=== PATIENT | female | born 1980 | race Caucasian/White ===

== ENCOUNTER 2017-06-02 13:03 | Inpatient (IN) | payer BC ==
[2017-06-02 13:26] VITALS: BMI 35.2
--- NOTE | 2017-06-02 15:28 | US ---
PROCEDURE: OB Pelvic Ultrasound HISTORY: R/O demise COMPARISON: None available. FINDINGS: An intrauterine gestation identified in vertex lie with an anterior placenta without evidence of previa or abruption. There is no detectable cardiac activity however. No breathing was identified or body movement and no tone was encountered during biophysical profile examination dependent fluid scoring 2 given an IVON 18.6. Total biophysical score is 2/8. Findings are compatible with demise. Further clinical correlation is recommended. Patient last notes appears 09/13/2016 suggesting an estimated gestational age of 37 weeks 3 days. Based on current biometry, the ultrasonic age is 37 weeks and 3 days as well. biometry: BPD 9.2 cm corresponds to 37 weeks 3 days. HC 32.9 cm corresponds to 37 weeks 2 days. AC 33.7 cm corresponds to 37 weeks 4 days. FL 7.3 cm corresponds to 37 weeks 3 days. Estimated weight 3231 g/ 7 lb 2 oz. AC suggests AC ratio 0.97 which falls within normal range. anatomical survey is quite limited at this late stage of gestation. Normal cervical length of 3.3 cm with a closed internal os. No definitive myometrial mass however the posterior fundus is poorly characterized due to obscuring by the fetus at this stage of gestation. OTHER FINDINGS: None. IMPRESSION: A single intrauterine gestation is identified at 37 weeks 3 days estimated gestational age sonographically equivalent to LMP derived dates, however, there is no detectable cardiac activity and biophysical profile score is 2/8. demise is suggested. Clinically correlate further.
[2017-06-02] MEDS ORDERED: ceFAZolin IV 2 gm in Dextrose 1 GM/50 ML BAG IVPB SCH (16:30)
[2017-06-02] MEDS ORDERED: Nalbuphine 20 mg/ml Inj (1 ml) IVP PRN (16:45)
--- NOTE | 2017-06-02 16:54 | OBHP ---
Datetime: 06/02/2017 13:31 IP Adm Impression: Term, intrauterine ; Demise IP Chief Complaint Other: AMA, Type2 DM, IP Admit Plan: Observation/Evaluation Admit Comment, IP Provider: This is a private patient of Dr. Babar Hartley 36 y.o. P0010, LMP 09/13/16, TUYET 06/21/17, EGA 37w 2d referred by pvt OB for evaluation of possible IUFD. HPI: patient recalls slightly decreased FM since 05/28/17 ..."even when I had the biophysical, he wasn't moving as much ...I thought it was normal". Reports no movement 2 days ago. Noticed neeta t "my abdomen raised a bit yesterday". Was seen in PMD's office today: sent for an ultrasound at an imaging center - no cardiac activity was noted: BPS 0/8. Denies LOF, VB; (+) increasing (B-H) contrac tions x 2 days : Dr. 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 Lives with significant other/ FOB, together x 1 2 years. 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 Father 1996 - S/P [place], h/o CAD. h/o t obacco use. Mat aunt - breast CA survivor 25 years ago, alive and well. P.E.: as above. Obese, crying. Awake, alert, oriented to time, person and place Assessment: 36 y.o. P0010, 37w 2d, Type 2 DM, possible IUFD; AMA, obesity, GBS (+). Plan: 1) OB ultrasound 2) Subsequent care to be determined - Dr Hartley is aware Addendum: 1635 hours - Ob ultrasound: BPS 2/8 - "no detectable cardiac activity"; EGA 37w 3d, EFW 7lb 2oz; anteri or placenta IVON 18.6 cm - Dr. Hartley is aware and present. Patient to be admitted for uterine evacuation. Assessment: 36 y.o. P0010, 37w 3d, IUFD - H/O Type 2 (pre-gestational) DM; AMA, obesity. Clinicall y stable. Plan: 1) Admit 2) NPO 3) Cervidil 4) [place] 5) Ancef 6) Admission labs, incl serological testing 7) Pain management upon request, including but not limited to epidural 8) Anticipate bereavement counseling 9) Supportive care Pelvic Type - PN: Not Done Extremities - PN: Normal Abdomen - PN: Normal Back - PN: Normal Breast - PN: Not Done Lungs - PN: Normal Heart - PN: Normal Thyroid - PN: Not Done Neurologic - PN: Normal HEENT - PN: Normal General - PN: Normal Presentation-Admit: Vertex FHR - Baseline A Provider: not applicable Comments, ACOG Physical Exam: Abdomen: Obese. Soft. Gravid. Non tender All other systems reviewed - as oer HPI Gestation - Est Wks by US: 37 w 3d EGA AdmitDate IP: 37.2 IP Indication for Induction: Demise IP Chief Complaint: Decreased movement Genitourinary Exam: Not Done DTRs - PN: Not Done
--- NOTE | 2017-06-02 16:59 | OBADHP ---
Datetime: 06/02/2017 13:31 IP Chief Complaint Other: AMA, Type2 DM, Admit Comment, IP Provider: This is a private patient of Dr. Babar Hartley 36 y.o. P0010, LMP 09/13/16, TUYET 06/21/17, EGA 37w 2d referred by pvt OB for evaluation of possible IUFD. HPI: patient recalls slightly decreased FM since 05/28/17 ..."even when I had the biophysical, he wasn't moving as much ...I thought it was normal". Reports no movement 2 days ago. Noticed neeta t "my abdomen raised a bit yesterday". Was seen in PMD's office today: sent for an ultrasound at an imaging center - no cardiac activity was noted: BPS 0/8. Denies LOF, VB; (+) increasing (B-H) contrac tions x 2 days : Dr. 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 Lives with significant other/ FOB, together x 1 2 years. 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 Father 1996 - S/P [place], h/o CAD. h/o t obacco use. Mat aunt - breast CA survivor 25 years ago, alive and well. P.E.: as above. Obese, crying. Awake, alert, oriented to time, person and place Assessment: 36 y.o. P0010, 37w 2d, Type 2 DM, possible IUFD; AMA, obesity, GBS (+). Plan: 1) OB ultrasound 2) Subsequent care to be determined - Dr Hartley is aware Addendum: 1635 hours - Ob ultrasound: BPS 2/8 - "no detectable cardiac activity"; EGA 37w 3d, EFW 7lb 2oz; anteri or placenta IVON 18.6 cm - Dr. Hartley is aware and present. Patient to be admitted for uterine evacuation. Assessment: 36 y.o. P0010, 37w 3d, IUFD - H/O Type 2 (pre-gestational) DM; AMA, obesity. Clinicall y stable. Plan: 1) Admit 2) NPO 3) Cervidil 4) [place] 5) Ancef 6) Admission labs, incl serological testing 7) Pain management upon request, including but not limited to epidural 8) Anticipate bereavement counseling 9) Supportive care - as per, and discussed with, Dr. Hartley Pelvic Type - PN: Not Done Extremities - PN: Normal Abdomen - PN: Normal Back - PN: Normal Breast - PN: Not Done Lungs - PN: Normal Heart - PN: Normal Thyroid - PN: Not Done Neurologic - PN: Normal HEENT - PN: Normal General - PN: Normal Presentation-Admit: Vertex FHR - Baseline A Provider: not applicable Comments, ACOG Physical Exam: Abdomen: Obese. Soft. Gravid. Non tender All other systems reviewed - as oer HPI Gestation - Est Wks by US: 37 w 3d Vital Signs Provider: Reviewed; Within Normal Limits IP Chief Complaint: Decreased movement Genitourinary Exam: Not Done DTRs - PN: Not Done EGA AdmitDate IP: 37.2 IP Adm Impression: Term, intrauterine ; Demise IP Admit Plan: Admit to unit; Initiate demise protocol
[2017-06-02 17:05] LABS: BASO % 0.3 % (0.0-2.0); EOS % 0.1 % (0.0-4.0); HEMATOCRIT 37.1 % (34.0-47.0); LYMPH # 1.7 K/uL (1.0-4.3); LYMPH % 16.4 % (20.0-40.0); MEAN CELL VOLUME 86.5 fL (81.0-99.0); MEAN CORPUSCULAR HEMOGLOBIN 28.9 pg (27.0-31.0); MEAN CORPUSCULAR HGB CONC 33.4 g/dL (33.0-37.0); MEAN PLATELET VOLUME 8.9 fL (7.2-11.7); MONO # 0.9 K/uL (0.0-0.8); MONO % 8.5 % (0.0-10.0); RED CELL DISTRIBUTION WIDTH 14.3 % (11.5-14.5); WHITE BLOOD COUNT 10.3 K/uL (4.8-10.8)
[2017-06-02 17:13] LABS: RBC URINE 18 /hpf (0-3); URINE BACTERIA MANY (<OCC); URINE BILIRUBIN NEGATIVE (NEGATIVE); URINE BLOOD NEGATIVE (NEGATIVE); URINE COLOR Yellow (YELLOW); URINE GLUCOSE (UA) 3+ mg/dL (Normal); URINE KETONE NEGATIVE (NEGATIVE); URINE LEUKOCYTE ESTERASE NEG Leu/uL (Negative); URINE PROTEIN NEGATIVE (NEGATIVE); URINE UROBILINOGEN NORMAL mg/dL (0.2-1.0); WBC URINE 21 /hpf (0-5)
[2017-06-02] MEDS ORDERED: ceFAZolin IV 2 gm in Dextrose 2 GM/50 ML BAG IVPB ONE ×2 (17:15→17:17)
[2017-06-02 17:18] LABS: ALKALINE PHOSPHATASE 95 U/L (38-126); ALT/SGPT 39 U/L (9-52); AST/SGOT 19 U/L (14-36); BILIRUBIN,TOTAL 0.3 mg/dL (0.2-1.3); BLOOD UREA NITROGEN 14 mg/dL (7-17); CALCIUM 8.8 mg/dl (8.6-10.4); CARBON DIOXIDE 23 mmol/L (22-30); CHLORIDE 107 mmol/L (98-107); GFR AFRICAN-AMERICAN > 60; GLUCOSE,RANDOM 93 mg/dL (65-105); POTASSIUM 4.1 mmol/L (3.6-5.2); SODIUM 136 mmol/L (132-148); TOTAL PROTEIN 6.6 g/dL (6.3-8.3); URIC ACID 4.9 mg/dL (2.2-7.5)
[2017-06-02 17:20] LABS: ALB/GLOB RATIO 0.8 (1.0-2.1)
[2017-06-02] MEDS: Lactated Ringer's 1,000 ML IV SCH ×2 (17:22→23:19)
[2017-06-02] MEDS ORDERED: Nalbuphine 20 mg/ml Inj (1 ml) ONE (20:39)
--- NOTE | 2017-06-02 23:18 | OBPN ---
Datetime: 06/02/2017 17:11 IP Procedures Other: IOL IP Progress Impression Other: IUFD, Tyoe 2 DM. AMA, GBS (+) IP Progress Plan: Cervical Ripening Membranes, Provider: Intact Contraction Comments Provider: 2-5 IP Progress Note Comment: Cervidil placed in posterior vaginal vault at 1700 hours Assessment: 36 y.o. P0010, 37w 3d, IUFD, Type 2 DM, AMA, GBS (+). Clinically stable. Plan: 1) Continue present management - as per Dr. Hartley Dilatation, Provider: 0 Effacement, Provider: 40 Station, Provider: high Datetime: 06/02/2017 13:31 FHR - Baseline A Provider: not applicable Gestation - Est Wks by US: 37 w 3d Presentation-Admit: Vertex Vital Signs Provider: Reviewed; Within Normal Limits
--- NOTE | 2017-06-02 23:22 | OBPN ---
Datetime: 06/02/2017 23:17 IP Progress Impression Other: IUFD, Type 2 DM, AMA, GBS (+) IP Procedures: Sterile Vag Exam IP Progress Plan: Continue present management; Cervical Ripening Membranes, Provider: Ruptured Amniotic Fluid Color, Provider: Clear Contraction Comments Provider: 1-2 minutes IP Progress Note Comment: NOtified by R.N. - patient with SROM Patient received in LDR#2 - moaning in pain; S/P IV nubain 2049 hours. Pain scale now10/10. Cervical exam - as above. Cervidil palpated i nposterior vaginal vault Assessment: 36 y.o. P0010, IUFD at 37w 3d, type 2 DM; AMA; GBS (+) on Ancef. F.S. at 2200 hours 80 mg/dL. Clinicallystable. Plan: 1) Epidural by anesthesia 2) Continue F.S. Q 4 hours 3) continue present management - as per Dr. Hartley Dilatation, Provider: 0 Effacement, Provider: 40 Station, Provider: high
[2017-06-02] MEDS ORDERED: Bupivacaine 0.125%/FentaNYL 200 ML EPI ONE (23:31)
[2017-06-03] MEDS: ceFAZolin IV 1 gm in Dextrose 1 GM/50 ML BAG IVPB SCH ×3 (00:30→19:23)
[2017-06-03] MEDS ORDERED: Oxytocin 30 UNIT 30 UNITS/500 ML BAG IV SCH ×2 (07:00)
[2017-06-03] MEDS ORDERED: Oxytocin 30 UNIT 30 UNITS/500 ML BAG IV PRN (07:03)
[2017-06-03] MEDS ORDERED: Oxytocin 30 UNIT 30 UNITS/500 ML BAG IV ONE (07:54)
[2017-06-03] MEDS ORDERED: Dextrose 5%/Lactated Ringer's 1,000 ML IV SCH (09:00)
[2017-06-03] MEDS ORDERED: Oxycodone/Acetaminophen 5/325 mg Tab PO PRN (13:13)
[2017-06-03] MEDS ORDERED: Midazolam 2 MG/2 ML VIAL ONE (15:36)
--- NOTE | 2017-06-03 16:08 | OBPN ---
Datetime: 06/03/2017 15:59 IP Progress Note Comment: I am on cll physician for virtua voorhees. Dr Hartley was delivering his miracle papie demise who is diabetic type 11.I was called at 15.20 stat for shoulder dystocia.I aarived at 15.22. head was aleady out. pt was in domingo position. I came in and deliverd post shouldveronica graham puuting my hands in the vagina. After shoulder deliverd Dr Hartley took over the delivery.baby deliver d at 15.26.
[2017-06-03] MEDS: (Novolog) Insulin Aspart, Recombinant 100 u/ml 10 ml vial SC SCH (20:06)
[2017-06-04] MEDS: Oxycodone/Acetaminophen 5/325 mg Tab PO PRN (00:14)
[2017-06-04] MEDS: ceFAZolin IV 1 gm in Dextrose 1 GM/50 ML BAG IVPB SCH ×2 (01:22→09:16)
[2017-06-04] MEDS: (Novolog) Insulin Aspart, Recombinant 100 u/ml 10 ml vial SC SCH ×2 (02:48→17:30)
[2017-06-04 08:27] LABS: HEMATOCRIT 32.7 % (34.0-47.0); MEAN CELL VOLUME 86.8 fL (81.0-99.0); MEAN CORPUSCULAR HEMOGLOBIN 28.9 pg (27.0-31.0); MEAN CORPUSCULAR HGB CONC 33.2 g/dL (33.0-37.0); RED CELL DISTRIBUTION WIDTH 14.6 % (11.5-14.5)
[2017-06-04 08:32] LABS: WHITE BLOOD COUNT 18.1 K/uL (4.8-10.8)
[2017-06-04] MEDS ORDERED: Influenza Vaccine 60 mcg/0.5 mL SYR (4YR UP) IM ONE (10:00)
--- NOTE | 2017-06-04 11:54 | OBDS ---
DELIVERY PERSONNEL Delivery Doctor: Med Hartley MD Scrub Nurse: Jenny Kerr Venereal Disease Control Head: Tiffany Devi RN Anesthesiologist: Dr. Hull MATERNAL INFORMATION Delivery Anesthesia: Epidural Medications in Delivery: methergine 0.2mg im at 1531/ 20 mu in 100 lR pitocin Estimated Blood Loss (ml): 350 Placenta Cultured: Yes Maternal Complications: Other Other Maternal Complications: Diabetic iddm RN Comments: social research assistant Nickie camara at [phone] Provider Comments: Pre-gestational Diabete at 37 weeks admitted with IUFD on 06/02/17. 2 OB sono done from [facility] with EFW of 7Lb 2Oz. Preconceptual Hb A1C was 9.5 then control to 7.1 then around to 5.4. Un-eventful induction with Ce rvidil. Since patient was exhausted with and not able to push we agreed to use vacuum assisted va ginal delivery. Shoulder dystocia noted and called for help and Dr. Leyva came to assist. She delive red left hand and left shoulder. then un-eventful vaginal delivery done. weight was 9Lb4Oz. For GBS+, Iadded Gentamicin along with Ancef. Dr. Kiran, [facility], last sono with BPP of 8 with EFW of 8 LB4Oz was done on 05/28/17 and scheduled on 06/05/17. He advised to deliver at 38 weeks and I schedule d induction on 06/07/17. LABOR SUMMARY EDC: 06/21/2017 00:00 No. Babies in Womb: 1 Attempted: Yes Labor Anesthesia: Epidural LABOR INFORMATION Reason for Induction: Demise Onset of Labor: 06/03/2017 06:34 Complete Dilatation: 06/03/2017 11:30 Cervical Ripening Agents: Cervidil (Annotations: cervidil pulled by Dr Salcido) Oxytocin: Augmentation Group B Beta Strep: Positive (Annotations: 06/01/17) Antibiotics # of Doses: 2 Antibiotics Time of Last Dose: 0830 Steroids Given: None Reason Steroids Not Administered: Not Applicable MEMBRANES Membranes Rupture Method: Spontaneous Rupture of Membranes: 06/03/2017 22:50 Length of Rupture (hrs): -7.40 Amniotic Fluid Color: Clear Amniotic Fluid Amount: Moderate Amniotic Fluid Odor: None STAGES OF LABOR Stage 1 hrs: 4 Stage 1 min: 56 Stage 2 hrs: 3 Stage 2 min: 56 Stage 3 hrs: 0 Stage 3 min: 4 Total Time in Labor hrs: 8 Total Time in Labor min: 56 VAGINAL DELIVERY Episiotomy: None Laceration Extension: First Degree Laceration Type: Vaginal; Periurethral Other Laceration: right vaginal, left periurethral Laceration Repair: Yes Initial Vag Sponge Count: 20 Final Vag Sponge Count: 20 Initial Vag Sharps Count: 3 Final Vag Sharps Count: 3 Sponge Count Correct: Yes Sharps Count Correct: Yes Count Comment: counted and correct BABY A INFORMATION Infant Delivery Date/Time: 06/03/2017 15:26 Method of Delivery: Vaginal Born in Route : No : N/A Forceps: N/A Vacuum Extraction: Successful Shoulder Dystocia : Yes SHOULDER DYSTOCIA BABY A Delivery Date/Time: 06/03/2017 15:26 PRESENTATION/POSITION BABY A Presentation: Cephalic Cephalic Presentation: Vertex Vertex Position: Left Occipital Anterior Breech Presentation: N/A PLACENTA INFORMATION BABY A Placenta Delivery Time : 06/03/2017 15:30 Placenta Method of Delivery: Spontaneous Placenta Status: Delivered SCORES BABY A Heart Rate 1 min: Absent Resp Effort 1 min: Absent Reflex Irritability 1 min: No Response Muscle Tone 1 min: Flaccid Color 1 min: Blue/Pale SCORE 1 MIN: 0 Heart Rate 5 min: Absent Resp Effort 5 min: Absent Reflex Irritability 5 min: No Response Muscle Tone 5 min: Flaccid Color 5 min: Blue/Pale SCORE 5 MIN: 0 INFANT INFORMATION BABY A Gestational Age at Delivery: 37.3 Gestational Status: Term Infant Outcome : Stillborn Infant Sex: Male WEIGHT/LENGTH BABY A Infant Birthweight (gms): 4205 Weight (lb): 9 Infant Weight (oz): 4 Infant Length Inches: 22.00 Infant Length cms: 55.9 CORD INFORMATION BABY A No. Cord Vessels: 3 Nuchal Cord : N/A Cord Blood Taken: Yes Suction: None ASSESSMENT BABY A Infant Complications: Shoulder Dystocia Physical Findings Other: grossly macerated/ skin peeling Transferred To: Remains with Mother
--- NOTE | 2017-06-04 11:56 | OBPPN ---
Datetime: 06/04/2017 11:53 PP Breasts Prov: Normal PP Heart Prov: Normal PP Abdomen/Uterus Prov: Normal PP Lochia Prov: Normal PP Vulva/Perineum Prov: Normal PP CVA Tenderness Prov: Normal PP Extremities Prov: Normal PP C/S Incision Prov: Normal PP Progress Prov: Normal PP Impression Prov: Normal progression PP Plan Prov: Continue present management PP Progress Note Prov: PPD #! VS Stable Abdomen Soft HOF -2 Perineum Intact P: Home in AM IP PP Procedures: None
--- NOTE | 2017-06-04 11:59 | OBDCSUM ---
Datetime: 06/04/2017 11:56 Discharged to, Provider: Home Follow up at, Provider: Dr. Hartley Discharge Instructions, Provider: Routine instructions given Discharge Diagnosis, Provider: Delivery Discharge Time: 06/05/2017 11:56 Follow up in weeks, Provider: 4 weeks Disch Referrals: None Discharge Diagnosis Prov Other: 37+ weeks IUFD Diabetes
[2017-06-04] MEDS ORDERED: Amoxicillin-Clav 875-125 mg Tab PO SCH (13:30)
[2017-06-04 16:08] VITALS: O2SAT 98
[2017-06-04] MEDS: Amoxicillin-Clav 875-125 mg Tab PO SCH (17:32)
[2017-06-04] MEDS: Simethicone 80 mg Chewtab PO SCH (17:34)
[2017-06-04] MEDS: Alum-Mag Hydrox-Simethicone Susp (30 mL) PO SCH ×2 (18:30→21:52)
[2017-06-05] MEDS: Oxycodone/Acetaminophen 5/325 mg Tab PO PRN (00:32)
[2017-06-05] MEDS: Amoxicillin-Clav 875-125 mg Tab PO SCH (06:03)
[2017-06-05 08:15] VITALS: BP 139/78; PULSE 107; RESP 18; TEMP 98
[2017-06-05] MEDS: Simethicone 80 mg Chewtab PO SCH (09:24)
[2017-06-05] MEDS: Alum-Mag Hydrox-Simethicone Susp (30 mL) PO SCH (09:24)
--- NOTE | 2017-06-05 11:44 | PCM.PSYCH ---
Initial Psychiatric Evaluation - Initial Psychiatric Evaluation Type of Admission: Voluntary Legal Status: Capacity Chief Complaint (in patient's own words): I'm fine, just feeling depressed at the moment" History of Present Illness and Precipitating Events: The pt is seen, chart reviewed, case discussed with staff. Pt is a 36y/o female with a history of Anxiety was evaluated after demise. Pt was 37.3 weeks when the demise occurred. Pt was consulted as she scored an 11 on the post- depression questionnaire. 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 Pt has a history of anxiety and panic attacks. She reports seeing a therapist 8 years ago for her anxiety. She reports that she only gets Panic attacks during major stresses and she reports feelings palpitations, SOB, and nausea during these episodes. Pt reports feeling of depression but denies suicidal and homicidal ideations. She reports that she did not sleep great last night but she attributed that to the physical pain in her stomach. Pt denies drug use. Pt reports that she drinks alcohol socially. Pt was counselled on following up with a psychiatrist in 2 weeks. Pt was given my information for possible follow up and given [facility] [facility] information. Past MHX: DM Type 2 Pastt Psychiatric HX: Anxiety, Panic Attacks Past Family Psychiatric HX: denies Past Family Substance Abuse: denies Current Medications: Active Medications Generic Name Dose Route Start Last Admin Trade Name Freq PRN Reason Stop Dose Admin Al Hydrox/Mg Hydrox/Simethicone 30 ml 06/04/17 18:00 06/05/17 09:24 Maalox Plus 30 Ml PO 30 ml QID XIOMARA Administration Amoxicillin/Clavulanate Potassium 1 tab 06/04/17 18:00 06/05/17 06:03 Augmentin 875 Mg-125 Mg Tab PO 1 tab Q12H XIOMARA Administration Docusate Sodium 100 mg 06/03/17 18:00 06/05/17 09:20 Colace PO 100 mg BID XIOMARA Administration Ibuprofen 600 mg 06/03/17 13:13 06/05/17 09:21 Motrin Tab PO 600 mg Q6 PRN Administration Pain, Mild (1-3) Insulin Aspart 0 unit 06/03/17 20:00 06/04/17 17:30 Novolog SC 2 unit Q4 XIOMARA Administration Protocol Metformin HCl 500 mg 06/04/17 10:00 06/05/17 09:20 Glucophage PO 500 mg BID XIOMARA Administration Oxycodone/Acetaminophen 1 tab 06/03/17 13:13 06/05/17 00:32 Percocet 5/325 Mg Tab PO 06/06/17 13:14 1 tab Q4H PRN Administration Pain, moderate (4-7) Oxycodone/Acetaminophen 2 tab 06/03/17 13:13 06/04/17 05:09 Percocet 5/325 Mg Tab PO 06/06/17 13:14 2 tab Q4H PRN Administration Pain, severe (8-10) Simethicone 80 mg 06/04/17 18:00 06/05/17 09:24 Mylicon Chew Tab PO 80 mg TID XIOMARA Administration Past Psychiatric History - Past Psychiatric History Previous Treatment History: None Pertinent Medical Hx (Current Medical&Sleep Prob, Allergies): Allergies Allergy/AdvReac Type Severity Reaction Status Date / Time No Known Allergies Allergy Verified 06/02/17 13:26 Review of Systems - Review of Systems All systems: reviewed and no additional remarkable complaints except - Neurological Neurological: Weakness - Psychiatric Psychiatric: Abnormal Sleep Pattern, Anxiety, Depression, Panic Attacks Mental Status Examination - Personal Presentation Personal Presentation: Looks stated age - Affect Affect: Constricted - Motor Activity Motor Activity: Calm - Reliability in Providing Information Reliability in Providing Information: Good - Speech Speech: Organized - Mood Mood: Depressed, Anxious - Formal Thought Process Formal Thought Process: No Impairment - Cognitive Functions Orientation: Person, Place, Situation, Time Sensorium: Alert Attention/Concentration: Attentive Judgement: Intact, as evidence by: Insight regarding need for hospitalization Memory: Recent intact, as evidence by: Ability to recall events of the day, Remote intact, as evidenced by: Ability to recall historical events DSM 5 DX - DSM 5 DSM 5 Diagnosis: Depressive disorder NOS Generalized Anxiety Disorder - Recommended/Plan of Treatment Treatment Recommendations and Plan of Treatment: Pt psychiatrically stable and clear for discharge and to follow up with OP psychiatrist. - Smoking Cessation Smoking Cessation Initiated: No
[2017-06-05] MEDS ORDERED: Influenza Vaccine 60 mcg/0.5 mL SYR (4YR UP) IM ONE (12:15)
--- NOTE | 2017-06-05 12:51 | OBPPN ---
Datetime: 06/05/2017 12:42 PP Pain Prov: Within normal limits PP Breasts Prov: Normal PP Heart Prov: Normal PP Lungs Prov: Normal PP Abdomen/Uterus Prov: Normal PP Lochia Prov: Normal PP Vulva/Perineum Prov: Normal PP CVA Tenderness Prov: Normal PP Extremities Prov: Normal PP C/S Incision Prov: Normal PP Progress Prov: Normal PP Impression Prov: Normal progression PP Plan Prov: Continue present management PP Progress Note Prov: PPD #2 No C/O VS Stable Abdomen Soft HOF -3 Perineum Intact Lochia Scant P: Home today with Augmentin X 1Week for GBS+ Advise to continue with Dr. Dickey for D.M. ( Pt's blood sugar was over 200mg% 0n 7 Post- check up in 3 weeks IP PP Procedures: None
[2017-06-05 20:30] LABS: CYTOMEGALOVIRUS AB (IGG) <0.60 U/mL; CYTOMEGALOVIRUS AB (IGM) <30.00 AU/mL; TOXOPLASMA IGG AB <7.20 IU/mL; TOXOPLASMA IGM AB <8.00 AU/mL
== END 2017-06-05 12:30 | disposition home or self-care (01) | DRG 774 ==
LOC: C.EROB 13:03 → C.4D 13:52 → C.4M 06-03 21:00
PROVIDERS: ADMIT Obstetrics & Gynecology Gynecology; ATTEND Obstetrics & Gynecology Gynecology
PROC: 3E0P7VZ Introduction of Hormone into Female Reproductive, Via Natural or Artificial Opening (ICD-10-PCS; 2017-06-02)
PROC: 10E0XZZ Delivery of Products of Conception, External Approach (ICD-10-PCS; principal; 2017-06-04)
PROC: 0UQMXZZ Repair Vulva, External Approach (ICD-10-PCS; 2017-06-04)
PROC: 0HQ9XZZ Repair Perineum Skin, External Approach (ICD-10-PCS; 2017-06-04)
DX: O36.4XX0 Maternal care for intrauterine death, not applicable or unspecified (principal); O24.12 Pre-existing type 2 diabetes mellitus, in childbirth; O99.344 Other mental disorders complicating childbirth; E11.9 Type 2 diabetes mellitus without complications; O66.0 Obstructed labor due to shoulder dystocia; O71.82 Other specified trauma to perineum and vulva; O99.824 Streptococcus B carrier state complicating childbirth; F32.9 Major depressive disorder, single episode, unspecified; F41.1 Generalized anxiety disorder; O70.0 First degree perineal laceration during delivery; Z79.4 Long term (current) use of insulin; Z3A.37 37 weeks gestation of pregnancy; Z37.1 Single stillbirth

== ENCOUNTER 2017-06-10 17:28 | Emergency (ER) | payer BC ==
[2017-06-10 17:29] VITALS: BMI 35.2
[2017-06-10 18:39] LABS: BASO # 0.1 K/uL (0.0-0.2); BASO % 0.5 % (0.0-2.0); EOS # 0.2 K/uL (0.0-0.7); EOS % 1.3 % (0.0-4.0); HEMATOCRIT 36.5 % (34.0-47.0); LYMPH # 2.7 K/uL (1.0-4.3); LYMPH % 20.3 % (20.0-40.0); MEAN CELL VOLUME 86.5 fL (81.0-99.0); MEAN CORPUSCULAR HEMOGLOBIN 28.2 pg (27.0-31.0); MEAN CORPUSCULAR HGB CONC 32.6 g/dL (33.0-37.0); MEAN PLATELET VOLUME 7.9 fL (7.2-11.7); MONO # 1.2 K/uL (0.0-0.8); MONO % 8.8 % (0.0-10.0); RED CELL DISTRIBUTION WIDTH 14.3 % (11.5-14.5); WHITE BLOOD COUNT 13.2 K/uL (4.8-10.8)
[2017-06-10 18:46] LABS: INR 1.1
[2017-06-10 18:52] LABS: ALB/GLOB RATIO 1.1 (1.0-2.1); ALKALINE PHOSPHATASE 70 U/L (38-126); ALT/SGPT 38 U/L (9-52); AST/SGOT 16 U/L (14-36); BILIRUBIN,TOTAL 0.3 mg/dL (0.2-1.3); BLOOD UREA NITROGEN 10 mg/dL (7-17); CALCIUM 8.6 mg/dl (8.6-10.4); CARBON DIOXIDE 26 mmol/L (22-30); CHLORIDE 104 mmol/L (98-107); GFR AFRICAN-AMERICAN > 60; GLUCOSE,RANDOM 82 mg/dL (65-105); POTASSIUM 3.8 mmol/L (3.6-5.2); SODIUM 137 mmol/L (132-148); TOTAL PROTEIN 5.9 g/dL (6.3-8.3)
[2017-06-10 18:59] LABS: RBC URINE 19 /hpf (0-3); URINE BACTERIA FEW (<OCC); URINE BILIRUBIN NEGATIVE (NEGATIVE); URINE BLOOD 3+ (NEGATIVE); URINE COLOR Yellow (YELLOW); URINE GLUCOSE (UA) NORMAL (Normal); URINE KETONE NEGATIVE (NEGATIVE); URINE LEUKOCYTE ESTERASE 2+ Leu/uL (Negative); URINE PROTEIN 1+ mg/dL (NEGATIVE); URINE UROBILINOGEN NORMAL mg/dL (0.2-1.0); WBC URINE 10 /hpf (0-5)
[2017-06-10] MEDS ORDERED: Iodixanol 320 mg/ml 150 ml Bottle IV ONE (20:55)
--- NOTE | 2017-06-10 22:17 | C.PDOC ---
Time Seen by Provider: 06/10/17 17:45 Chief Complaint (Nursing): Shortness Of Breath History Per: Patient Onset/Duration Of Symptoms: Days (few weeks), Waxing/Waning Current Symptoms Are (Timing): Still Present Exacerbating Factor(s): Exertion. denies: Laying Flat Current Respiratory Medications: None Severity: Moderate Associated Symptoms: denies: Chest Pain Reports Recently: Hospitalized (Pt has a third trimester still- 1 week ago. ) Additional History Per: Prior Records Past Medical History Reviewed: Historical Data, Nursing Documentation, Vital Signs Vital Signs: Last Vital Signs Temp 99.8 F H 06/10/17 22:03 Pulse 103 H 06/10/17 22:03 Resp 20 06/10/17 22:03 BP 149/80 06/10/17 22:03 Pulse Ox 98 06/10/17 22:03 - Medical History PMH: Diabetes Surgical History: No Surg Hx - [facility] Procedures (06/02/17) DELIVERY OF PRODUCTS OF CONCEPTION, EXTERNAL APPROACH (06/02/17) REPAIR PERINEUM SKIN, EXTERNAL APPROACH (06/02/17) REPAIR VULVA, EXTERNAL APPROACH (06/02/17) Family History: States: Unknown Family Hx - Social History Hx Alcohol Use: No Hx Substance Use: No - Immunization History Hx Tetanus Toxoid Vaccination: No Hx Influenza Vaccination: No Hx Pneumococcal Vaccination: No Review Of Systems Except As Marked, All Systems Reviewed And Found Negative. Constitutional: Negative for: Fever Cardiovascular: Negative for: Chest Pain Respiratory: Positive for: SOB with Excertion. Negative for: Hemoptysis Gastrointestinal: Positive for: Abdominal Pain (epigastric discomfort). Negative for: Vomiting Genitourinary: Positive for: Vaginal Bleeding (mild, post-delivery). Negative for: Dysuria Musculoskeletal: Negative for: Neck Pain Skin: Negative for: Rash Neurological: Negative for: Weakness, Numbness Physical Exam - Physical Exam Appears: Non-toxic, No Acute Distress Skin: Normal Color, Warm, Dry, No Rash Head: Atraumatic, Normacephalic Eye(s): bilateral: PERRL, EOMI Neck: Normal ROM, Supple Cardiovascular: Rhythm Regular Respiratory: Normal Breath Sounds, No Accessory Muscle Use Gastrointestinal/Abdominal: Soft, No Tenderness Back: No CVA Tenderness Extremity: Normal ROM, No Calf Tenderness Neurological/Psych: Oriented x3, Normal Motor, Normal Sensation ED Course And Treatment - Laboratory Results Result Diagrams: 06/10/17 18:31 06/10/17 18:31 ECG: Interpreted By Me, Viewed By Me ECG Rhythm: Sinus Tachycardia, Nonspecific Changes Rate From EC O2 Sat by Pulse Oximetry: 98 Pulse Ox Interpretation: Normal - Radiology CXR: Interpreted by Me, Viewed By Me CXR Interpretation: Yes: Cardiomegaly (?) - CT Scan/US CTA of chest Other Rad Studies (CT/US): Read By Radiologist, Radiology Report Reviewed CT/US Interpretation: FINDINGS: Limitations: Suboptimal timing of bolus. Pulmonary arteries: No definite pulmonary embolism. Aorta: No aneurysm. No dissection. Lungs: No consolidation. Pleural space: No significant effusion. No pneumothorax. Heart: Mild cardiomegaly. No significant pericardial effusion. Mediastinum: Small hiatal hernia. Bones/joints: No acute fracture. Soft tissues: Unremarkable. Lymph nodes: No pathologically enlarged lymph nodes. Spleen: Mild splenomegaly, AP dimension. IMPRESSION: 1. No definite CT evidence of pulmonary embolism. 2. Incidental/non-acute findings are described above. Progress Note: Pt feels better and wants to go home. I informed pt that she may have an enlarged heart and that she must follow up with a Wire Setter promptly for further evaluation. Reassessment Condition: Improved Disposition Counseled Patient/Family Regarding: Studies Performed, Diagnosis, Need For Followup, Rx Given - Disposition Referrals: Patricio Caro MD [Staff Provider] - Terra Julio MD [Staff Provider] - Disposition: HOME/ ROUTINE Disposition Time: 22:19 Condition: STABLE Additional Instructions: Follow up with your doctor within 2 days. Follow up with a Wire Setter for further evaluation and treatment. Return to the ER if you develop worsening of symptoms or if you have any other concerns. Prescriptions: Famotidine [Pepcid] 20 mg PO BID #30 tab traMADol/Acetaminophen [Ultracet 325 MG-37.5 MG] 1 tab PO Q4 PRN #20 tab PRN Reason: Pain, Severe (8-10) Instructions: Dyspnea (ED) Forms: [facility] (Welsh) - Clinical Impression Clinical Impression: Exertional dyspnea
[2017-06-10 22:32] VITALS: BP 147/79; PULSE 106; RESP 18; TEMP 98.6; O2SAT 97
--- NOTE | 2017-06-11 08:35 | RAD ---
PROCEDURE: CHEST RADIOGRAPH, 1 VIEW HISTORY: Shortness of breath COMPARISON: None available. FINDINGS: LUNGS: The lungs are clear. PLEURA: No pneumothorax or pleural fluid seen. CARDIOVASCULAR: Normal. OSSEOUS STRUCTURES: No significant abnormalities. VISUALIZED UPPER ABDOMEN: Normal. OTHER FINDINGS: None. IMPRESSION: No active pulmonary disease.
--- NOTE | 2017-06-11 09:25 | CT ---
PROCEDURE: CT Chest with contrast (Pulmonary Angiogram) HISTORY: Shortness of breath. Pulmonary embolism. One week . COMPARISON: None available. TECHNIQUE: Axial computed tomography images were obtained of the chest in the pulmonary arterial phase of enhancement. Coronal and sagittal reformatted images were created and reviewed. Radiation dose: Total exam DLP = 417 mGy-cm. This CT exam was performed using one or more of the following dose reduction techniques: Automated exposure control, adjustment of the mA and/or kV according to patient size, and/or use of iterative reconstruction technique. FINDINGS: PULMONARY ARTERIES: No definite central pulmonary embolism. More limited evaluation of the segmental and subsegmental branches given motion artifact and suboptimal contrast timing bolus. AORTA: No acute findings. No thoracic aortic aneurysm. LUNGS: Unremarkable. No nodule, mass or pulmonary consolidation. Patchy bibasilar atelectasis. PLEURAL SPACES: Unremarkable. No effusion or pneuomothorax. HEART: Mild cardiomegaly. LYMPH NODES: No lymphadenopathy. BONES, CHEST WALL: Unremarkable. No fracture or destructive lesion OTHER FINDINGS: Suboptimal timing of bolus. Mild splenomegaly. Small hiatal hernia. IMPRESSION: Limited evaluation secondary to suboptimal contrast timing bolus. No definite central pulmonary embolism. More limited evaluation of segmental and subsegmental branches. Additional findings as above. These findings were preliminarily reported at 9:18 a.m. on 06/10/[address] Herrera Wood from [facility].
--- NOTE | 2017-06-11 19:21 | CARD ---
APPROVED REPORT EKG Measurement Heart [id number] MD [id number] <Conclusion> Sinus tachycardia Septal infarct, age undetermined Abnormal ECG
== END 2017-06-10 22:35 | disposition home or self-care (01) ==
LOC: C.ER 17:28
DX: R06.09 Other forms of dyspnea (principal)
CPT/HCPCS: 71010; 71275; 80053; 81001; 83690; 83880; 84484; 85025; 85378; 85610; 85730; 93005; 96374; 96375; 99285; J2765; Q9967